=== PATIENT | male | born 1955 | race African-American/Black ===

== ENCOUNTER 2021-04-11 00:56 | Inpatient (IN) ==
[2021-04-11 02:27] LABS: ABS Lymphocytes 0.9 10^3/ul (1.0-4.8); ABS Monocytes 0.5 10^3/ul (0-0.8); ABS Neutrophils 5.4 10^3/ul (1.5-7.7); Eosinophil % 0.3 %; Hematocrit 42 % (42-52); Hemoglobin 14.8 g/dL (14.0-18.0); Lymphocyte % 12.7 %; Mean Corpuscular HGB Conc 35 g/dL (31-36); Mean Corpuscular Hemoglobin 32 pg (27-31); Mean Corpuscular Volume 91 fL (80-94); Platelet Count 186 10^3/uL (150-450); Red Blood Count 4.62 10^6 /uL (4.18-5.48); Red Cell Distribution Width 13 % (10-15); White Blood Count 6.8 10^3/uL (3.5-10.8)
[2021-04-11 02:45] LABS: Albumin/Globulin Ratio 0.9 (1-3); Calcium 8.3 mg/dL (8.6-10.3); EGFR African American 103.1 (>60); EGFR Non-African American 85.2 (>60); Globulin 4.3 g/dL (2-4); Magnesium 1.9 mg/dL (1.9-2.7); Potassium 3.9 mmol/L (3.5-5.0); Total Bilirubin 0.4 mg/dL (0.2-1.0); Total Protein 8.3 g/dL (6.4-8.9)
[2021-04-11 02:46] LABS: Troponin I 0.01 ng/mL (<0.03)
[2021-04-11] MEDS ORDERED: levETIRAcetam 1000MG IVPREMIX 1,000 MG/100 ML BAG IVPB ONE (03:54)
[2021-04-11] MEDS ORDERED: Prothrombin Complex Conc. DOSE = Units Factor IX (nine) IV SLOW PU ONE (04:30)
[2021-04-11 05:44] LABS: INR 1.2 (0.86-1.15)
[2021-04-11 06:13] LABS: Activated Partial Thrombo Time 30.6 seconds (26.0-38.0)
[2021-04-11 06:19] LABS: ABS Lymphocytes 0.9 10^3/ul (1.0-4.8); ABS Monocytes 0.5 10^3/ul (0-0.8); ABS Neutrophils 3.8 10^3/ul (1.5-7.7); Eosinophil % 0.5 %; Hematocrit 42 % (42-52); Hemoglobin 14.3 g/dL (14.0-18.0); Lymphocyte % 17.2 %; Mean Corpuscular HGB Conc 34 g/dL (31-36); Mean Corpuscular Hemoglobin 32 pg (27-31); Mean Corpuscular Volume 92 fL (80-94); Nucleated Red Blood Cells % 0.1; Platelet Count 185 10^3/uL (150-450); Red Blood Count 4.54 10^6 /uL (4.18-5.48); Red Cell Distribution Width 13 % (10-15); White Blood Count 5.3 10^3/uL (3.5-10.8)
[2021-04-11 06:55] LABS: EGFR African American 105.8 (>60); EGFR Non-African American 87.5 (>60)
[2021-04-11 07:00] LABS: Urine Appearance Clear; Urine Bilirubin Negative (Negative); Urine Blood 3+ (Negative); Urine Color Straw; Urine Glucose Negative (Negative); Urine Ketones Negative (Negative); Urine Nitrite Negative (Negative); Urine Protein Negative (Negative); Urine Specific Gravity 1.006 (1.002-1.030); Urine Urobilinogen Negative (Negative)
[2021-04-11 07:22] LABS: Urine Bacteria Absent (Absent); Urine Red Blood Cell 2+(6-10/hpf) (Absent); Urine Squamous Epithelial Cell Present (Absent); Urine White Blood Cell Trace(0-5/hpf) (Absent)
[2021-04-11 07:24] LABS: Troponin I 0.01 ng/mL (<0.03)
[2021-04-11 07:28] LABS: Carbamazepine 6.8 mcg/mL (4.0-12.0); Phenytoin 18.5 mcg/mL (10-20)
[2021-04-11 08:27] LABS: Magnesium 1.8 mg/dL (1.9-2.7)
[2021-04-11 08:32] LABS: Phosphorus 2.5 mg/dL (2.5-5.0)
[2021-04-11] MEDS: Cholecalciferol (VIT D3) 1,000 unit TAB PO SCH (09:06)
[2021-04-11] MEDS ORDERED: Magnesium Sulfate 2 gm BAG 2 GM/50 ML BAG IVPB ONE (09:23)
[2021-04-11] MEDS: Phenytoin 100 mg ER CAP PO SCH ×2 (13:34→20:56)
[2021-04-11] MEDS: Latanoprost 0.005% 2.5 ml BTL BOTH EYES SCH (18:08)
[2021-04-11] MEDS ORDERED: Phenytoin 100 mg ER CAP PO SCH (21:00)
[2021-04-11] MEDS: HYDROcodone/ACETAMIN 5/325 mg TAB PO PRN (21:04)
[2021-04-12 06:50] LABS: ABS Eosinophils 0.1 10^3/ul (0-0.6); ABS Lymphocytes 1.1 10^3/ul (1.0-4.8); ABS Monocytes 0.6 10^3/ul (0-0.8); ABS Neutrophils 3.3 10^3/ul (1.5-7.7); Eosinophil % 1.4 %; Hematocrit 41 % (42-52); Hemoglobin 14.4 g/dL (14.0-18.0); Lymphocyte % 21.4 %; Mean Corpuscular HGB Conc 35 g/dL (31-36); Mean Corpuscular Hemoglobin 32 pg (27-31); Mean Corpuscular Volume 92 fL (80-94); Nucleated Red Blood Cells % 0.1; Platelet Count 178 10^3/uL (150-450); Red Blood Count 4.52 10^6 /uL (4.18-5.48); Red Cell Distribution Width 13 % (10-15)
[2021-04-12 07:04] LABS: Albumin 3.5 g/dL (3.2-5.2); Albumin/Globulin Ratio 0.8 (1-3); EGFR African American 101.8 (>60); EGFR Non-African American 84.1 (>60); Globulin 4.3 g/dL (2-4); Magnesium 1.9 mg/dL (1.9-2.7); Phosphorus 2.7 mg/dL (2.5-5.0); Total Bilirubin 0.4 mg/dL (0.2-1.0); Total Protein 7.8 g/dL (6.4-8.9)
[2021-04-12] MEDS ORDERED: Magnesium Sulfate 2 gm BAG 2 GM/50 ML BAG IVPB ONE (07:13)
[2021-04-12] MEDS: Cholecalciferol (VIT D3) 1,000 unit TAB PO SCH (08:16)
[2021-04-12] MEDS: Phenytoin 100 mg ER CAP PO SCH ×3 (08:17→21:08)
[2021-04-12] MEDS: HYDROcodone/ACETAMIN 5/325 mg TAB PO PRN (08:17)
[2021-04-12] MEDS ORDERED: Ondansetron 4 mg VIAL 2 MG/ML 2 ml VIAL IV PRN (09:30)
[2021-04-12] MEDS: Latanoprost 0.005% 2.5 ml BTL BOTH EYES SCH (16:59)
[2021-04-13] MEDS ORDERED: HYDROcodone/ACETAMIN 5/325 mg TAB PO ONE (00:52)
[2021-04-13 05:20] LABS: ABS Eosinophils 0.1 10^3/ul (0-0.6); ABS Lymphocytes 1.4 10^3/ul (1.0-4.8); ABS Monocytes 0.5 10^3/ul (0-0.8); ABS Neutrophils 2.7 10^3/ul (1.5-7.7); Eosinophil % 1.5 %; Hematocrit 44 % (42-52); Hemoglobin 15.1 g/dL (14.0-18.0); Mean Corpuscular HGB Conc 34 g/dL (31-36); Mean Corpuscular Hemoglobin 32 pg (27-31); Mean Corpuscular Volume 92 fL (80-94); Mean Platelet Volume 8.2 fL (7.4-10.4); Platelet Count 198 10^3/uL (150-450); Red Cell Distribution Width 13 % (10-15); White Blood Count 4.7 10^3/uL (3.5-10.8)
[2021-04-13 05:31] LABS: Calcium 8.3 mg/dL (8.6-10.3); EGFR African American 100.5 (>60); EGFR Non-African American 83.1 (>60)
[2021-04-13] MEDS: Cholecalciferol (VIT D3) 1,000 unit TAB PO SCH (08:49)
[2021-04-13] MEDS: Phenytoin 100 mg ER CAP PO SCH ×3 (08:50→21:00)
[2021-04-13] MEDS: Latanoprost 0.005% 2.5 ml BTL BOTH EYES SCH (18:05)
[2021-04-14] MEDS: Cholecalciferol (VIT D3) 1,000 unit TAB PO SCH (08:27)
[2021-04-14] MEDS: Phenytoin 100 mg ER CAP PO SCH ×3 (08:28→21:29)
[2021-04-14] MEDS: Latanoprost 0.005% 2.5 ml BTL BOTH EYES SCH (17:25)
[2021-04-15] MEDS: Cholecalciferol (VIT D3) 1,000 unit TAB PO SCH (09:30)
[2021-04-15] MEDS: Phenytoin 100 mg ER CAP PO SCH ×3 (09:31→21:40)
[2021-04-15] MEDS: Latanoprost 0.005% 2.5 ml BTL BOTH EYES SCH (17:44)
[2021-04-16] MEDS: Phenytoin 100 mg ER CAP PO SCH ×3 (07:49→21:07)
[2021-04-16] MEDS: Cholecalciferol (VIT D3) 1,000 unit TAB PO SCH (07:49)
[2021-04-16] MEDS ORDERED: Iodixanol (CONTRAST) 320 MG/ML 100 ML SDV IV ONE (09:02)
[2021-04-16 09:50] LABS: ABS Eosinophils 0.1 10^3/ul (0-0.6); ABS Lymphocytes 1.8 10^3/ul (1.0-4.8); ABS Monocytes 0.8 10^3/ul (0-0.8); ABS Neutrophils 2.9 10^3/ul (1.5-7.7); Eosinophil % 1.8 %; Hematocrit 48 % (42-52); Lymphocyte % 32.7 %; Mean Corpuscular HGB Conc 34 g/dL (31-36); Mean Corpuscular Hemoglobin 31 pg (27-31); Mean Corpuscular Volume 94 fL (80-94); Mean Platelet Volume 8.2 fL (7.4-10.4); Nucleated Red Blood Cells % 0.1; Platelet Count 228 10^3/uL (150-450); Red Cell Distribution Width 13 % (10-15); White Blood Count 5.6 10^3/uL (3.5-10.8)
[2021-04-16] MEDS ORDERED: Iodixanol (CONTRAST) 320 MG/ML 100 ML SDV IV SCH (10:00)
[2021-04-16 10:06] LABS: Calcium 8.7 mg/dL (8.6-10.3); EGFR African American 98.1 (>60); EGFR Non-African American 81.1 (>60)
[2021-04-16 10:57] LABS: Potassium 3.9 mmol/L (3.5-5.0)
[2021-04-16] MEDS: Latanoprost 0.005% 2.5 ml BTL BOTH EYES SCH (18:21)
[2021-04-17] MEDS: Phenytoin 100 mg ER CAP PO SCH ×3 (08:11→20:29)
[2021-04-17] MEDS: Cholecalciferol (VIT D3) 1,000 unit TAB PO SCH (08:11)
[2021-04-17] MEDS: Latanoprost 0.005% 2.5 ml BTL BOTH EYES SCH (16:44)
[2021-04-18 07:41] LABS: Albumin 3.7 g/dL (3.2-5.2); Albumin/Globulin Ratio 0.8 (1-3); Calcium 8.6 mg/dL (8.6-10.3); EGFR African American 94.6 (>60); EGFR Non-African American 78.2 (>60); Globulin 4.6 g/dL (2-4); Potassium 3.8 mmol/L (3.5-5.0); Total Bilirubin 0.6 mg/dL (0.2-1.0); Total Protein 8.3 g/dL (6.4-8.9)
[2021-04-18] MEDS: Cholecalciferol (VIT D3) 1,000 unit TAB PO SCH (08:05)
[2021-04-18] MEDS: Phenytoin 100 mg ER CAP PO SCH ×2 (08:05→13:22)
[2021-04-18 11:26] VITALS: BP 128/74
[2021-04-18] MEDS: Latanoprost 0.005% 2.5 ml BTL BOTH EYES SCH (17:16)
== END 2021-04-18 18:00 | DRG 55 ==
LOC: ED 00:56 → EDHOLD 04:55 → ICU 07:05 → MEDTELE 04-12 12:15
PROVIDERS: ADMIT Internal Medicine; ATTEND Hospitalist